=== PATIENT | female | born 1995 ===

== ENCOUNTER 2017-03-06 09:33 | Emergency (ER) | payer MEDICAID, OTHER ==
[2017-03-06 09:41] VITALS: BP 133/68; PULSE 90; RESP 16; TEMP 98.8; O2SAT 100
[2017-03-06 09:42] VITALS: BMI 40.3
--- NOTE | 2017-03-06 10:34 | ED PDOC ---
Upper Extremity Pain/Injury Time Seen by Provider: 03/06/17 09:46 Chief Complaint (Nursing): Abnormal Skin Integrity Chief Complaint (Provider): Abnormal Skin Integrity History Per: Patient History/Exam Limitations: no limitations Onset/Duration Of Symptoms: Days (x30) Current Symptoms Are (Timing): Still Present Additional Complaint(s): Sadaf Montes is a 21 year old female presenting to the ED for an evaluation of a 1 month history of bilateral underarm skin irritation and itchiness. The patient reports she uses her deodorant that contains aluminum in it every day. She also states she uses Montes products with her last use noted 1 month ago, but otherwise shaves. The patient has tried Neosporin cream for the itchiness, without relief. She denies any pain. PMD: Mercy Umana MD Past Medical History Reviewed: Historical Data, Nursing Documentation, Vital Signs Vital Signs: Last Vital Signs Temp 98.8 F 03/06/17 09:41 Pulse 90 03/06/17 09:41 Resp 16 03/06/17 09:41 BP 133/68 03/06/17 09:41 Pulse Ox 100 03/06/17 09:41 - Medical History PMH: No Chronic Diseases - Surgical History Surgical History: No Surg Hx - Family History Family History: States: Unknown Family Hx - Social History Current smoker - smoking cessation education provided: No Ex-Smoker (has not smoked in the last 12 months): No Alcohol: None Drugs: Denies - Home Medications Home Medications: Ambulatory Orders Medication Instructions Recorded Albuterol HFA [Ventolin HFA 90 2 puff IH Q4H #1 puff 04/20/16 mcg/actuation (8 g)] Azithromycin [Zithromax] 250 mg PO DAILY #6 tab 04/20/16 Clotrimazole 1% Cream [Lotrimin 1% 1 applic TP BID #1 tube 03/06/17 CREAM] Hydrocortisone 1% Cream [Cortizone 1 appl TP BID #1 tube 03/06/17 1% Cream] - Allergies Allergies/Adverse Reactions: Allergies Allergy/AdvReac Type Severity Reaction Status Date / Time No Known Allergies Allergy Verified 04/20/16 17:22 Review of Systems ROS Statement: Except As Marked, All Systems Reviewed And Found Negative Skin: Positive for: Other (bilateral underarm skin irritation and itchiness but no pain ) Physical Exam - Reviewed Nursing Documentation Reviewed: Yes Vital Signs Reviewed: Yes - Physical Exam Appears: Positive for: Non-toxic, No Acute Distress Head Exam: Positive for: ATRAUMATIC, NORMAL INSPECTION, NORMOCEPHALIC Skin: Negative for: Normal Color (bilateral underarms: folds of skin that are mildly erythematous with dry and thickened skin; no vesicles, pustules, discharge, tenderness or swelling ) Eye Exam: Positive for: Normal appearance, EOMI Cardiovascular/Chest: Positive for: Regular Rate, Rhythm Respiratory: Negative for: Respiratory Distress Extremity: Positive for: Normal ROM Neurologic/Psych: Positive for: Alert, Oriented - ECG O2 Sat by Pulse Oximetry: 100 (RA) Pulse Ox Interpretation: Normal Medical Decision Making Medical Decision Making: Time: 09:46 Impression: Rash Differential diagnosis includes but is not limited to contact dermatitis due to deodorant use, less likely fungal dermatitis Plan: * Will Rx hydrocortisone and antifungal. Discussed to follow-up with dermatology. Pt agreed to treatment plan. Scribe Attestation: Documented by Robyn Chatman, acting as a scribe for Hans Nicholas MD. Provider Scribe Attestation: All medical record entries made by the Scribe were at my direction and personally dictated by me. I have reviewed the chart and agree that the record accurately reflects my personal performance of the history, physical exam, medical decision making, and the department course for this patient. I have also personally directed, reviewed, and agree with the discharge instructions and disposition. Disposition - Clinical Impression Clinical Impression: Contact dermatitis - Patient ED Disposition Is Patient to be Admitted: No Doctor Will See Patient In The: Office Counseled Patient/Family Regarding: Studies Performed, Diagnosis, Need For Followup - Disposition Referrals: [facility] [place] [Outside] Disposition: Routine/Home Disposition Time: 10:30 Condition: FAIR Additional Instructions: Apply creams as instructed. Follow up with your PCP or heavy duty truck mechanic within 1 week. Prescriptions: Clotrimazole 1% Cream [Lotrimin 1% CREAM] 1 applic TP BID #1 tube Hydrocortisone 1% Cream [Cortizone 1% Cream] 1 appl TP BID #1 tube Instructions: Contact Dermatitis (ED)
== END 2017-03-06 10:41 | disposition home or self-care (01) ==
LOC: H.ER 09:33
DX: L25.9 Unspecified contact dermatitis, unspecified cause (principal)